=== PATIENT | male | born 1995 | race American Indian/Alaskan Native ===

== ENCOUNTER 2017-01-05 18:32 | Emergency (ER) | payer MEDICAID, OTHER | END 2017-01-05 19:41 | disposition left against medical advice (07) | LOC: DL.ED 18:32 | DX: Z53.21 Procedure and treatment not carried out due to patient leaving prior to being seen by health care provider (principal) ==

== ENCOUNTER 2017-01-06 09:27 | Emergency (ER) | payer OTHER ==
--- NOTE | 2017-01-06 09:46 | EDM.PDOC ---
ED HPI GENERAL MEDICAL PROBLEM - General Chief Complaint: Skin Complaint Stated Complaint: BOIL ON FACE Time Seen by Provider: 01/06/17 09:41 Source of Information: Reports: Patient, RN, RN Notes Reviewed History Limitations: Reports: No Limitations - History of Present Illness INITIAL COMMENTS - FREE TEXT/NARRATIVE: Pt presents to the ER with c/o an area of swelling and redness on the right side of the face, from the right side of the mouth, right side of chin, moving into the lips and neck as well. Patient states this began 2-3 days ago and has been progressively getting worse. He states the pain is 10/10, burning. He states he has been taking tylenol and ibuprofen for pain and fever. He states he thinks he had a fever last night, but is unsure. He denies any dental involvement. 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 [No Known Home Meds] 01/06/17 [History] Social & Family History - Tobacco Use Smoking Status *Q: Current Every Day Smoker Years of Tobacco use: 1 Packs/Tins Daily: 0.1 Used Tobacco, but Quit: No Second Hand Smoke Exposure: Yes - Caffeine Use Caffeine Use: Reports: Coffee Caffeine Use Comment: daily - Recreational Drug Use Recreational Drug Use: No ED ROS GENERAL - Review of Systems Review Of Systems: ROS reveals no pertinent complaints other than HPI. ED EXAM, SKIN/RASH Exam: See Below Exam Limited By: No Limitations General Appearance: Alert, WD/WN, No Apparent Distress Eye Exam: Bilateral Eye: Normal Inspection Ears: Normal External Exam, Hearing Grossly Normal Nose: Normal Inspection Throat/Mouth: Normal Inspection, Normal Teeth, Normal Gums, Normal Oropharynx, Normal Voice, No Airway Compromise. No: Normal Lips (lower lip on the right is swollen) Head: Atraumatic, Normocephalic Neck: Normal Inspection, Supple, Non-Tender, Full Range of Motion Respiratory/Chest: No Respiratory Distress, Lungs Clear, Normal Breath Sounds, No Accessory Muscle Use, Chest Non-Tender Cardiovascular: Normal Peripheral Pulses, Regular Rate, Rhythm, No Edema, No Gallop, No JVD, No Murmur, No Rub Peripheral Pulses: 2+: Carotid (L), Carotid (R), Radial (L), Radial (R) GI/Abdominal: Normal Bowel Sounds, Soft, Non-Tender, No Organomegaly, No Distention, No Abnormal Bruit, No Mass (Male) Exam: Deferred Rectal (Males) Exam: Deferred Back Exam: Normal Inspection, Full Range of Motion Extremities: Normal Inspection, Normal Range of Motion, Non-Tender, No Pedal Edema, Normal Capillary Refill Neurological: Alert, Oriented, Normal Cognition, No Motor/Sensory Deficits Psychiatric: Normal Affect, Normal Mood Skin: Warm, Dry, Intact, Normal Color, No Rash Location, Skin: Face Characteristics: Erythematous Associated features: Warmth, Tenderness, Swelling, Weeping Lymphatic: Adenopathy (right submental, anterior cervical) ED SKIN PROCEDURES - I&D Site: Right chin/face Skin Prep: Chlorhexidine (Hibiciens) Area Incised With: Needle (25g) Drainage: Purulent, Moderate Amount Probed to Break Up Loculations: No Packed With: None Sterile Dressing: None Complications: No Course - Vital Signs Last Recorded V/S: Last Vital Signs Temp 97.1 F 01/06/17 09:40 Pulse 88 01/06/17 09:40 Resp 16 01/06/17 09:40 BP 149/94 H 01/06/17 09:40 Pulse Ox 98 01/06/17 09:40 - Orders/Labs/Meds Orders: Active Orders 24 hr Category Date Time Status Peripheral IV Care [RC] . DIRECTED Care 01/06/17 10:00 Active CULTURE WOUND [RM] Stat Lab 01/06/17 10:00 Ordered Sodium Chloride 0.9% [Saline Flush] Med 01/06/17 10:00 Active 10 ml FLUSH ASDIRECTED PRN Vancomycin [Vancocin] 1 gm Med 01/06/17 10:00 Active Sodium Chloride 0.9% [Normal Saline] 250 ml IV ONETIME Peripheral IV Insertion Adult [OM.PC] Stat Oth 01/06/17 09:59 Ordered Medication Orders Vancomycin HCl 1 gm/ Sodium (Chloride) 250 mls @ 167 mls/hr IV ONETIME ONE Stop: 01/06/17 11:29 Last Admin: 01/06/17 10:20 Dose: 167 mls/hr Sodium Chloride (Saline Flush) 10 ml FLUSH ASDIRECTED PRN PRN Reason: Keep Vein Open Last Admin: 01/06/17 10:22 Dose: 10 ml Labs: Laboratory Tests 01/06/17 01/06/17 01/06/17 Range/Units 09:48 09:48 09:48 WBC 16.1 H (5.0-10.0) 10^3/uL RBC 4.18 L (4.6-6.2) 10^6/uL Hgb 11.8 L (14.0-18.0) g/dL Hct 34.8 L (40.0-54.0) % MCV 83.3 (80-100) fL MCH 28.2 (27.0-34.0) pg MCHC 33.9 (33.0-35.0) g/dL Plt Count 320 (150-450) 10^3/uL Neut % (Auto) 80.6 H (42.2-75.2) % Lymph % (Auto) 8.6 L (20.5-50.1) % [place] % (Auto) 9.6 H (2-8) % Eos % (Auto) 1.1 (1.0-3.0) % Baso % (Auto) 0.1 (0.0-1.0) % Sodium 137 (135-145) mmol/L Potassium 3.3 L (3.6-5.0) mmol/L Chloride 100 L (101-111) mmol/L Carbon Dioxide 26.0 (21.0-31.0) mmol/L Anion Gap 14.3 BUN 18 (7-18) mg/dL Creatinine 0.8 (0.6-1.3) mg/dL Est Cr Clr Drug Dosing 149.94 mL/min Estimated GFR (MDRD) > 60 BUN/Creatinine Ratio 22.50 Glucose 95 (74-105) mg/dL Calcium 9.0 (8.4-10.2) mg/dl Total Bilirubin 1.0 (0.2-1.0) mg/dL AST 28 (10-42) IU/L ALT 23 (10-60) IU/L Alkaline Phosphatase 61 (42-121) IU/L C-Reactive Protein 10.0 H (0.0-1.3) mg/dL Total Protein 7.0 (6.7-8.2) g/dl Albumin 3.8 (3.2-5.5) g/dl Globulin 3.2 Albumin/Globulin Ratio 1.19 Meds: Medications Generic Name Dose Route Start Last Admin Trade Name Freq PRN Reason Stop Dose Admin Vancomycin HCl 1 gm/ Sodium 250 mls @ 167 mls/hr 01/06/17 10:00 01/06/17 10: 20 Chloride IV 01/06/17 11:29 167 mls/hr ONETIME ONE Administration Sodium Chloride 10 ml 01/06/17 10:00 01/06/17 10:22 Saline Flush FLUSH 10 ml ASDIRECTED PRN Administration Keep Vein Open - Re-Assessments/Exams Free Text/Narrative Re-Assessment/Exam: 01/06/17 10:4 01/06/17 10:44 The importance of follow up with his primary care facility was emphasized with the patient. He stated understanding. Departure - Departure Time of Disposition: 11:15 Disposition: Home, Self-Care 01 Condition: Fair Clinical Impression: Abscess Cellulitis Qualifiers: Site of cellulitis: face Qualified Code(s): L03.211 - Cellulitis of face - Discharge Information Instructions: Abscess, [id number], Cellulitis, Adult, [id number] Forms: ED Department Discharge Additional Instructions: RX: Clindamycin Cephalexin Follow up with your primary care facility tomorrow or Wednesday. - My Orders Last 24 Hours: My Active Orders 01/06/17 09:59 Peripheral IV Insertion Adult [OM.PC] Stat 01/06/17 10:00 Peripheral IV Care [RC] . DIRECTED CULTURE WOUND [RM] Stat Sodium Chloride 0.9% [Saline Flush] 10 ml FLUSH ASDIRECTED PRN Vancomycin [Vancocin] 1 gm Sodium Chloride 0.9% [Normal Saline] 250 ml IV ONETIME - Assessment/Plan Last 24 Hours: My Active Orders 01/06/17 09:59 Peripheral IV Insertion Adult [OM.PC] Stat 01/06/17 10:00 Peripheral IV Care [RC] . DIRECTED CULTURE WOUND [RM] Stat Sodium Chloride 0.9% [Saline Flush] 10 ml FLUSH ASDIRECTED PRN Vancomycin [Vancocin] 1 gm Sodium Chloride 0.9% [Normal Saline] 250 ml IV ONETIME
[2017-01-06] MEDS ORDERED: Sodium Chloride 0.9% 10 ML Syringe FLUSH PRN (10:00)
[2017-01-06 10:15] LABS: CHLORIDE,CL 100 mmol/L (101-111); SODIUM,NA 137 mmol/L (135-145)
== END 2017-01-06 11:54 | disposition home or self-care (01) ==
LOC: DL.ED 09:27
DX: L02.01 Cutaneous abscess of face (principal); L03.211 Cellulitis of face; F17.210 Nicotine dependence, cigarettes, uncomplicated
CPT/HCPCS: 10060; 36415; 80053; 85025; 86140; 87070; 87077; 87186; 96365; 96366; 99283; J3370; J7050

== ENCOUNTER 2019-09-18 03:15 | Emergency (ER) | payer MEDICAID, OTHER ==
--- NOTE | 2019-09-18 03:23 | EDM.PDOCBH ---
ED HPI GENERAL MEDICAL PROBLEM - General Stated Complaint: MED CLEARANCE-TEST FOR COVID Time Seen by Provider: 09/18/19 03:22 Source of Information: Reports: Patient, Police, RN, RN Notes Reviewed History Limitations: Reports: No Limitations - History of Present Illness INITIAL COMMENTS - FREE TEXT/NARRATIVE: Patient presents to ER with [employer] officer for medical clearance for incarceration. Patient states his mother recently had COVID 19, so known exposure. Patient states he has had a cough for the past 3 days. Patient has not coughed while being in the ER. Onset: Today - Related Data Allergies Allergy/AdvReac Type Severity Reaction Status Date / Time No Known Allergies Allergy Verified 09/18/19 03:39 Home Meds: Home Meds . [No Known Home Meds] 01/06/17 [History] Past Medical History - Past Health History Medical/Surgical History: Denies Medical/Surgical History Psychiatric History: Reports: Addiction - Infectious Disease History Infectious Disease History: Reports: MRSA Social & Family History - Family History Family Medical History: Noncontributory - Caffeine Use Caffeine Use: Reports: Coffee Caffeine Use Comment: daily - Living Situation & Occupation Living situation: Reports: with Significant Other Occupation: Unemployed ED ROS GENERAL - Review of Systems Review Of Systems: Comprehensive ROS is negative, except as noted in HPI. ED EXAM, BEHAVIORAL HEALTH - Physical Exam Exam: See Below Exam Limited By: No Limitations General Appearance: Alert, WD/WN, No Apparent Distress Eye Exam: Bilateral Eye: EOMI, Normal Inspection Ears: Normal External Exam, Hearing Grossly Normal Nose: Normal Inspection Throat/Mouth: Normal Inspection, Normal Voice, No Airway Compromise Head: Atraumatic, Normocephalic Neck: Normal Inspection, Supple, Non-Tender, Full Range of Motion Respiratory/Chest: No Respiratory Distress, Lungs Clear, Normal Breath Sounds, No Accessory Muscle Use, Chest Non-Tender Cardiovascular: Normal Peripheral Pulses, Regular Rate, Rhythm, No Edema, No Gallop, No JVD, No Murmur, No Rub GI/Abdominal: Normal Bowel Sounds, Soft, Non-Tender (Male) Exam: Deferred Rectal (Males) Exam: Deferred Back Exam: Normal Inspection, Full Range of Motion, NT Extremities: Normal Inspection, Normal Range of Motion, Non-Tender, Normal Capillary Refill, No Pedal Edema Neurological: Alert, Normal Mood/Affect, CN II-XII Intact, Normal Cognition, Normal Gait, Normal Reflexes, No Motor/Sensory Deficits, Oriented x 3 Psychiatric: Alert, Normal Affect, Normal Cognition, Normal Mood, Oriented Skin Exam: Warm, Dry, Intact, Normal color, No rash COURSE, BEHAVIORAL HEALTH COMP - Course Orders, Labs, Meds: Laboratory Tests 09/18/19 Range/Units 03:20 COVID-19 (OSMIN) Negative (NEGATIVE) Departure - Departure Time of Disposition: 04:03 Disposition: Home, Self-Care 01 Condition: Good Clinical Impression: Medical clearance for incarceration - Discharge Information *PRESCRIPTION DRUG MONITORING PROGRAM REVIEWED*: No *COPY OF PRESCRIPTION DRUG MONITORING REPORT IN PATIENT DORIS: No Forms: ED Department Discharge Additional Instructions: COVID testing today was negative Patient is medically stable at this time to be discharged with law enforcement for incarceration
== END 2019-09-18 04:06 | disposition home or self-care (01) ==
LOC: DL.ED 03:15
DX: Z20.828 Contact with and (suspected) exposure to other viral communicable diseases (principal)
CPT/HCPCS: 99283; U0002

== ENCOUNTER 2024-11-16 16:11 | Emergency (ER) | payer MEDICAID, OTHER ==
[2024-11-16 16:22] LABS: BASOPHILS PERCENT AUTO 0.2 % (0.0-1.0); EOSINOPHILS PERCENT AUTO 1.4 % (1.0-3.0); LYMPHOCYTES PERCENT AUTO 18.7 % (20.5-50.1); MONOCYTES PERCENT AUTO 7.0 % (2-8); NEUTROPHILS PERCENT AUTO 72.7 % (42.2-75.2); PLATELET COUNT,PLT 286 10^3/uL (150-450); RED BLOOD CELL COUNT 5.29 10^6/uL (4.6-6.2); WHITE BLOOD CELL COUNT,WBC 8.1 10^3/uL (5.0-10.0)
[2024-11-16 16:37] LABS: BLOOD UREA NITROGEN,BUN 15 mg/dL (7-18); CARBON DIOXIDE,CO2 26 mmol/L (21-32); CHLORIDE,CL 102 mmol/L (98-107); CREATININE 1.16 mg/dL (0.70-1.30); ESTIMATED GFR 87 mL/min (>=60); GLUCOSE RANDOM 100 mg/dL (70-99); INR 0.9 (0.9-1.2); POTASSIUM,K 3.5 mmol/L (3.5-5.1); SODIUM,NA 139 mmol/L (136-145)
== END 2024-11-16 17:49 | disposition home or self-care (01) ==
LOC: DL.ED 16:11
DX: S01.83XA Puncture wound without foreign body of other part of head, initial encounter (principal); W22.8XXA Striking against or struck by other objects, initial encounter
CPT/HCPCS: 36415; 70450; 80048; 85025; 85610; 99282; 99284; A9270